=== PATIENT | female | born 1965 | race Caucasian/White ===

== ENCOUNTER → 2022-05-13 | Day surgery (SDC) | payer OTHER ==
[~2022-05-13] MED LIST: ACETAM PO; ALBUTEROL SULF 0.083% NEB SOLN 3 ML NEB ONE; BENZONATATE200 MG PO; BUPROPION HCL150 M2 PO; CELEBREX200 MG PO; DICYCLOMINE HCL10 MG PO; ELDERBERRY IMM1 EACH PO; EPHEDRINE SULFATE INJ 50 MG/ML VIAL ONE; FENTANYL CITRATE/PF 100MCG/2 ML INJ ONE; HYDRO; HYOSCYAMINE SULFATE 0.5 MG/ML INJ ONE; LOSARTAN-HCTZ1 EAC1 PO; MOVANTIK25 MG PO; NEURONTIN400 MG PO; NORCO; OMEPRAZOLE40 MG PO; OXCARBAZEPINE300 MG PO; PHENYLEPHRINE HCL 1% 10 MG/ML VIAL ONE; PROPOFOL IV EMULSION 10 MG/ML 20 ML VIAL ONE; SERTRALINE HCL100 MG PO; VALIUM10 MG PO; [UNRECOGNIZED DRUG - OTHER] PO
[2022-05-13 14:45] VITALS: BP 120/72
== END | disposition home or self-care (01) ==
LOC: OR 10:25
PROVIDERS: ATTEND Internal Medicine Gastroenterology
DX: Z12.11 Encounter for screening for malignant neoplasm of colon (principal); D12.4 Benign neoplasm of descending colon; K29.50 Unspecified chronic gastritis without bleeding; K31.A11 Gastric intestinal metaplasia without dysplasia, involving the antrum; K63.89 Other specified diseases of intestine; K57.30 Diverticulosis of large intestine without perforation or abscess without bleeding; K21.9 Gastro-esophageal reflux disease without esophagitis; K59.03 Drug induced constipation; K44.9 Diaphragmatic hernia without obstruction or gangrene; K64.8 Other hemorrhoids; K74.60 Unspecified cirrhosis of liver; I10 Essential (primary) hypertension; J44.9 Chronic obstructive pulmonary disease, unspecified; F41.9 Anxiety disorder, unspecified; F32.A Depression, unspecified; F17.200 Nicotine dependence, unspecified, uncomplicated; Z88.6 Allergy status to analgesic agent; Z88.1 Allergy status to other antibiotic agents; Z88.0 Allergy status to penicillin; Z79.899 Other long term (current) drug therapy; Z86.19 Personal history of other infectious and parasitic diseases; Z87.898 Personal history of other specified conditions; Z86.73 Personal history of transient ischemic attack (TIA), and cerebral infarction without residual deficits
CPT/HCPCS: 43239; 45384; 45385; 88305; 88342; 93005; 94640; J1980; J2370; J2704; J3010; 88304; 88312